=== PATIENT | male | born 1955 | race Caucasian/White ===

== ENCOUNTER 2019-12-04 13:32 | Outpatient (CLI) | payer OTHER ==
--- NOTE | 2019-12-04 13:56 | RAD ---
EXAM: XR Sacrum and Coccyx STANDARD PROVIDED CLINICAL HISTORY: Sacroiliitis. Patient states low back pain. COMPARISON: None FINDINGS: Sacroiliac joints demonstrate a symmetric and normal appearance. No sclerosis is seen along sacroilia c joints. No fracture or other osseous abnormality is seen involving the sacrum or coccyx. IMPRESSION: No acute osseous abnormality.
== END 2019-12-04 13:33 | disposition home or self-care (01) ==
LOC: BICRAD 13:32
PROVIDERS: ATTEND Specialist
DX: M46.1 Sacroiliitis, not elsewhere classified (principal)
CPT/HCPCS: 72220